=== PATIENT | male | born 1960 | race Caucasian/White ===

== ENCOUNTER 2021-01-10 06:18 | Day surgery (SDC) | payer OTHER ==
[2021-01-07 13:15] VITALS: BMI 41.0
[2021-01-10] MEDS ORDERED: PROPOFOL 40 ML ONE (07:59)
[2021-01-10] MEDS ORDERED: Fentanyl 100 MCG/2 ML VIAL ONE (07:59)
[2021-01-10] MEDS ORDERED: Lidocaine 1% PF 5 ML VIAL ONE (08:00)
[2021-01-10] MEDS ORDERED: PROPOFOL 20 ML ONE (08:35)
== END 2021-01-10 09:25 | disposition home or self-care (01) ==
LOC: CSHSDC 06:18
PROVIDERS: ATTEND Internal Medicine Gastroenterology
PROC: 0DBK8ZZ Excision of Ascending Colon, Via Natural or Artificial Opening Endoscopic (ICD-10-PCS; principal; 2021-01-10)
DX: Z12.11 Encounter for screening for malignant neoplasm of colon (principal); K57.30 Diverticulosis of large intestine without perforation or abscess without bleeding; K64.9 Unspecified hemorrhoids; K63.5 Polyp of colon
CPT/HCPCS: 88305; J2704; J3010

== ENCOUNTER 2021-05-03 11:21 | Outpatient (CLI) | payer OTHER ==
[2021-05-03 14:04] LABS: SARS-CoV-2 NAA Rapid Test Not Detected (NotDetected)
== END 2021-05-03 11:22 | disposition home or self-care (01) ==
LOC: CSHLAB 11:21
PROVIDERS: ATTEND Internal Medicine Critical Care Medicine
DX: Z20.822 Contact with and (suspected) exposure to COVID-19 (principal); R06.09 Other forms of dyspnea
CPT/HCPCS: U0002

== ENCOUNTER 2021-05-04 09:43 | Outpatient (CLI) | payer OTHER | END 2021-05-04 09:44 | disposition home or self-care (01) | LOC: CSHCP 09:43 | PROVIDERS: ATTEND Internal Medicine Critical Care Medicine | DX: R06.02 Shortness of breath (principal) | CPT/HCPCS: 94150; 94726; 94729; 94760 ==

== ENCOUNTER 2021-11-01 16:15 | Emergency (ER) | payer OTHER ==
[2021-11-01] MEDS ORDERED: Bacitracin 1 PK ONE (18:27)
== END 2021-11-01 18:19 | disposition home or self-care (01) ==
LOC: CSHERS 16:15
DX: S61.412A Laceration without foreign body of left hand, initial encounter (principal); E03.9 Hypothyroidism, unspecified; I10 Essential (primary) hypertension; W26.8XXA Contact with other sharp object(s), not elsewhere classified, initial encounter
CPT/HCPCS: 12001

== ENCOUNTER 2021-12-21 11:38 | Emergency (ER) | payer OTHER | END 2021-12-21 14:00 | disposition home or self-care (01) | LOC: CSHERS 11:38 | DX: S61.511A Laceration without foreign body of right wrist, initial encounter (principal); E03.9 Hypothyroidism, unspecified; I10 Essential (primary) hypertension; W25.XXXA Contact with sharp glass, initial encounter | CPT/HCPCS: 12001 ==